=== PATIENT | female | born 1965 | race Caucasian/White ===

== ENCOUNTER 2017-12-22 20:59 | Emergency (ER) | payer MEDICAID, OTHER ==
[2017-12-22] MEDS: morphine 4 MG/ML VIAL IM (23:26)
[2017-12-22] MEDS: ONDANSETRON (ODT) 4 MG TAB ODT (23:27)
== END 2017-12-23 02:30 | disposition home or self-care (01) ==
LOC: E/R 12-23 02:30
DX: S52.572A Other intraarticular fracture of lower end of left radius, initial encounter for closed fracture (principal); S52.612A Displaced fracture of left ulna styloid process, initial encounter for closed fracture; E11.9 Type 2 diabetes mellitus without complications; W19.XXXA Unspecified fall, initial encounter; Y92.9 Unspecified place or not applicable; Z79.4 Long term (current) use of insulin
CPT/HCPCS: 29125; 73090; 73110-LT; 73510; 73550; 73562; 96372; 99284-25